=== PATIENT | male | born 1945 | race Caucasian/White ===

== ENCOUNTER 2020-01-14 10:28 | Emergency (ER) | payer MEDICARE, BC ==
[~2020-01-14] VITALS: Ht 177.8 cm; Wt 80.3 kg
--- OUTSIDE RECORDS SUMMARY | 2020-01-14 10:31 | XMS REPORT | Summary of Care ---
Author Author Ventura Glover LVN Organization Unknown Address Unknown Phone Unavailable Care Team Providers Care Nps Name Role Phone PAM Oneal, CHARLES Unavailable Unavailable Ventura Glover LVN Unavailable Unavailable HOLLY CLINTON MD Unavailable Unavailable ARASH GONZALES [place], VÍCTOR BAL Unavailable Unavailable PAM MALDONADO [place], CHARLES Cintron Unavailable Unavailable MARY BETH Wood, HOLLY Unavailable Unavailable Unavailable Unavailable Functional Status Name Dates Details Functional status health issues are not documented Status: Name Dates Details Cognitive status health issues are not documented Status: Problems Name Dates Details Abdominal aortic aneurysm (AAA) 30 to 34 mm in diameter (441.4, I71.4) Status: Active Medicare annual wellness visit, subsequent (V70.0, Z00.00) Status: Active Need for influenza vaccination (V04.81, Z23) Status: Active Encounter for mini-mental status examination Status: Active Depression screen (V79.0, Z13.31) Status: Active At low risk for fall (V49.89, Z91.81) Status: Active Advance care planning (V65.49, Z71.89) Status: Active Non-compliance with treatment (V15.81, Z91.19) Status: Active Need for shingles vaccine (V04.89, Z23) Status: Active BPH without urinary obstruction (600.00, N40.0) Status: Active Hyperlipemia, mixed (272.2, E78.2) Status: Active Cancer of the skin, basal cell (173.91, C44.91) Status: Active Colon cancer screening (V76.51, Z12.11) Status: Active Screening for AAA (abdominal aortic aneurysm) (V81.2, Z13.6) Status: Active Abnormal EKG (794.31, R94.31) Status: Active Need for 23-polyvalent pneumococcal polysaccharide vaccine (V03.82, Z23) Status: Active Medications Name Dates Details Aspirin 325 MG Oral Tablet TAKE 1 TABLET DAILY Active Docusate Sodium 100 MG Oral Capsule TAKE 1 CAPSULE DAILY * Quantity: 90 Refills: 1 Active Flonase Allergy Relief 50 MCG/ACT Nasal Suspension USE 1 SPRAY IN EACH NOSTRIL DAILY. * Refills: 0 Active Centrum Silver Adult 50+ Oral Tablet TAKE 1 TABLET DAILY. * Refills: 0 Active Fish Oil 1200 MG Oral Capsule TAKE 1 CAPSULE DAILY * Refills: 0 Active Zyrtec 5 MG TABS TAKE 1 TABLET DAILY. * Refills: 0 Active Tdap (Boostrix) 1 unit dose IM now x 1 * Quantity: 1 Refills: 0 OROZCO N.P., CHARLES * Start : 18-Aug-2019 Active Shingrix 50 MCG Intramuscular Suspension Reconstituted Administer at pharmacy as directed * Quantity: 1 Refills: 0 OROZCO N.P., CHARLES * Start : 18-Aug-2019 Active Allergies and Adverse Reactions Name Dates Details Shellfish-derived Products (Allergy) Status: Active Sulfa Drugs (Allergy) Status: Active Past Medical History Name Dates Details History of Detached retina, right (361.9, H33.21) Status: Resolved History of Need for hepatitis C screening test (V73.89, Z11.59) Status: Resolved History of Vision screen without abnormal findings (V72.0, Z01.00) Status: Resolved Procedures Procedure Dates Details History of Treatment Of Forearm Fracture Completed History of Elbow Surgery Completed Immunization Name Dates Details Fluzone Quadrivalent 0.5 ML Intramuscular Suspension Lot #: [id number] on: 23-Dec-2016 Family History Name Dates Details Family history of Melanoma (172.9, C43.9) Status: Active Name Dates Details Family history of hypertension (V17.49, Z82.49) Status: Active Family history of malignant neoplasm of urinary bladder (V16.52, Z80.52) Status: Active Family history of malignant neoplasm of prostate (V16.42, Z80.42) Status: Active Family history of Colon cancer (153.9, C18.9) Status: Active Family history of skin cancer (V16.8, Z80.8) Status: Active Name Dates Details Family history of hypertension (V17.49, Z82.49) Status: Active Social History Name Dates Details - Status: Name Dates Details Former smoker Vital Signs Date Test Result Details [id number] BP Systolic 138 mm[Hg] Status: Comments: Location: LUE; Position: Sitting BP Diastolic 77 mm[Hg] Status: Comments: [place] [facility] [place]: [place]itting Results Date Description Value Details :30 [Q] LIPID PANEL WITH REFLEX TO DIRECT LDL CHOLESTEROL, TOTAL 222 mg/dl (Above high threshold) Range: <200 HDL CHOLESTEROL 58 mg/dl (Normal) Range: >40 TRIGLYCERIDES 136 mg/dl (Normal) Range: <150 LDL-CHOLESTEROL 138 {MG/DL__CAL} (Above high threshold) Comments: Reference range: <100 Desirable range <100 mg/dL for primary prevention; <70 mg/dL for patients with CHD or diabetic patients with > or=2 CHD risk factors. LDL-C is now calculated using the Marzena calculation, which is a validated novel method providing better accuracy than the Friedewald equation in the estimation of LDL-C. Boyd SS et al. VEAR. 2013;310(19): 0452-1971 (http:/ /education.hike.[employer]/faq/UKL540) CHOL/HDLC RATIO 3.8 {CALC} (Normal) Range: <5.0 NON HDL CHOLESTEROL 164 {MG/DL__CAL} (Above high threshold) Range: <130 Comments: For patients with diabetes plus 1 major ASCVD risk factor, treating to a non-HDL-C goal of <100 mg/dL (LDL-C of <70 mg/dL) is considered a therapeutic option. :30 [[facility]] CMP W/EGFR GLUCOSE 82 mg/dl (Normal) Range: 65-99 Comments: Fasting reference interval UREA NITROGEN (BUN) 10 mg/dl (Normal) Range: 7-25 CREATININE 0.85 mg/dl (Normal) Range: 0.70-1.18 Comments: For patients >49 years of age, the reference limitfor Creatinine is approximately 13% higher for peopleidentified as -[place]. eGFR NON- 87 {ML/MIN/1.7} (Normal) Range: > OR=60 eGFR 101 {ML/MIN/1.7} (Normal) Range: > OR=60 BUN/CREATININE RATIO NOT APPLICABLE {CALC} Range: 6-22 SODIUM 142 mmol/L (Normal) Range: 135-146 POTASSIUM 4.3 mmol/L (Normal) Range: 3.5-5.3 CHLORIDE 105 mmol/L (Normal) Range: 98-110 CARBON DIOXIDE 29 mmol/L (Normal) Range: 20-32 CALCIUM 9.6 mg/dl (Normal) Range: 8.6-10.3 PROTEIN, TOTAL 6.3 g/dl (Normal) Range: 6.1-8.1 ALBUMIN 4.4 g/dl (Normal) Range: 3.6-5.1 GLOBULIN 1.9 {G/DL__CALC} (Normal) Range: 1.9-3.7 ALBUMIN/GLOBULIN RATIO 2.3 {CALC} (Normal) Range: 1.0-2.5 BILIRUBIN, TOTAL 1.1 mg/dl (Normal) Range: 0.2-1.2 ALKALINE PHSPHATASE 77 u/l (Normal) Range: 40-115 AST 15 u/l (Normal) Range: 10-35 ALT 16 u/l (Normal) Range: 9-46 30-Aug-20198:30 [[facility]] CBC (INCLUDES DIFF/PLT) WHITE BLOOD CELL COUNT 4.1 {Thousand/u} (Normal) Range: 3.8-10.8 RED BLOOD CELL COUNT 4.81 {Million/uL} (Normal) Range: 4.20-5.80 HEMAGLOBIN 15.2 g/dl (Normal) Range: 13.2-17.1 HEMATOCRIT 43.3 % (Normal) Range: 38.5-50.0 MCV 90.0 fL (Normal) Range: 80.0-100.0 MCH 31.6 pg (Normal) Range: 27.0-33.0 MCHC 35.1 g/dl (Normal) Range: 32.0-36.0 RDW 13.5 % (Normal) Range: 11.0-15.0 PLATELET COUNT 221 {Thousand/u} (Normal) Range: 140-400 MPV 9.9 fL (Normal) Range: 7.5-12.5 ABSOLUTE NEUTROPHILS 2218 {cells/uL} (Normal) Range: 6075-7644 ABSOLUTE LYMPHOCYTES 1214 {cells/uL} (Normal) Range: 850-3900 ABSOLUTE MONOCYTES 385 {cells/uL} (Normal) Range: 200-950 ABSOLUTE EOSINOPHILS 242 {cells/uL} (Normal) Range: 15-500 ABSOLUTE BASOPHILS 41 {cells/uL} (Normal) Range: 0-200 NEUTROPHILS 54.1 % (Normal) LYMPHOCYTES 29.6 % (Normal) MONOCYTES 9.4 % (Normal) EOSINOPHILS 5.9 % (Normal) BASOPHILS 1.0 % (Normal) :30 [[facility]] TSH, 3RD GENERATION W/REFLEX TO FT4 TSH, 3RD GENERATION W/REFLEX TO FT4 2.42 {MIU/L} (Normal) Range: 0.40-4.50 :30 [[facility]] PSA, TOTAL Comments: REPORT COMMENT:COLLECTION KIT GIVEN TO PATIENT. PATIENT ADVISED TO RETURN. PSA, TOTAL 0.8 ng/ml (Normal) Range: < OR=4.0 Comments: The total PSA value from this assay system is standardized against the WHO standard. The test result will be approximately 20% lower when compared to the equimolar-standardized total PSA ([place] [place]). Comparison of serial PSA results should be interpreted with this fact in mind. This test was performed using the Siemens chemiluminescent method. Values obtained from different assay methods cannot be usedinterchangeably. PSA levels, regardless ofvalue, should not be interpreted as absoluteevidence of the presence or absence of disease. :00 [Q] FECAL GLOBIN BY IMMUNOCHEM. (MEDICARE) [id number] Comments: FECAL GLOBIN BY IMMUNOCHEM. (MEDICARE) MICRO NUMBER: [id number] TEST STATUS: FINAL SPECIMEN SOURCE: INSURE () FOBT TEST CARD SPECIMEN QUALITY: ADEQUATE RESULT: Not DetectedNO COLLECTION DATE RECEIVED. WE HAVE USEDTHE DATE THE SPECIMEN WAS RECEIVED BY [facility] THE COLLECTION DATE. IF THISIS INCORRECT, PLEASE CONTACT CLIENT SERVICES.PHONE NUMBER: [phone] :00 [[facility]] LIPID PANEL WITH REFLEX TO DIRECT LDL CHOLESTEROL, TOTAL TNP mg/dl Comments: Test not performed.No suitable specimen received. HDL CHOLESTEROL TNP mg/dl Comments: Test not performed.No suitable specimen received. TRIGLYCERIDES TNP mg/dl Comments: Test not performed.No suitable specimen received. LDL-CHOLESTEROL TNP {MG/DL__CAL} Comments: Test not performed.No suitable specimen received. CHOL/HDLC RATIO TNP {CALC} Comments: Test not performed.No suitable specimen received. NON HDL CHOLESTEROL TNP {MG/DL__CAL} Comments: Test not performed.No suitable specimen received. :00 [QL] CMP W/EGFR GLUCOSE TNP mg/dl Comments: Test not performed.No suitable specimen received. : [[facility]] CBC (INCLUDES DIFF/PLT) WHITE BLOOD CELL COUNT TNP {Thousand/u} Comments: Test not performed.No suitable specimen received. : [[facility]] TSH, 3RD GENERATION W/REFLEX TO FT4 TSH, 3RD GENERATION W/REFLEX TO FT4 TNP {MIU/L} Comments: Test not performed.No suitable specimen received. : [[facility]] PSA, TOTAL PSA, TOTAL TNP ng/ml Comments: Test not performed.No suitable specimen received. Plan of Care Name Dates Details Planned Observations Planned Goals not documented Instructions Name Dates Details Instructions not documented Encounters Appointment; CHARLES OROZCO NP Encounter Diagnosis: Problem not documented On: 18-Aug-2019 14:30 Appointment; DIANA, ECHO Encounter Diagnosis: Problem not documented On: 13-Sep-2019 10:00 Appointment; DINAA ECHO Encounter Diagnosis: Problem not documented On: 13-Sep-2019 11:00
[2020-01-14] MEDS ORDERED: TRAMADOL HCL 50 MG TAB PO ONE (10:45)
--- NOTE | 2020-01-14 11:28 | Diagnostic Imaging Report ---
Right shoulder and clavicle, 5 radiographs Clinical indication: Right shoulder injury, pain Comparison: None IMPRESSION: There is no radiographic evidence of acute fracture. There is approximately 15 mm of right acromioclavicular widening and increased coracoclavicular distance of approximately 20 mm. The inferior border of the clavicle is subluxed above the level of the superior border of the acromion. The visualized portions of the right lung are grossly clear. Signed by: John Thompson MD on 01/14/2020 11:25 AM
[2020-01-14] MEDS ORDERED: ACETAMINOPHEN 325 MG TAB PO ONE (11:45)
[2020-01-14] MEDS ORDERED: ACETAMINOPHEN 325 MG TAB ONE (11:50)
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
== END 2020-01-14 11:33 | disposition home or self-care (01) ==
LOC: ER 10:28
DX: S00.83XA Contusion of other part of head, initial encounter (principal); S43.101A Unspecified dislocation of right acromioclavicular joint, initial encounter; S40.011A Contusion of right shoulder, initial encounter; W01.0XXA Fall on same level from slipping, tripping and stumbling without subsequent striking against object, initial encounter; Y92.008 Other place in unspecified non-institutional (private) residence as the place of occurrence of the external cause; Z85.828 Personal history of other malignant neoplasm of skin
CPT/HCPCS: 70450; 72125; 99283